=== PATIENT | female | born 1965 | race Two or more races ===

== ENCOUNTER 2020-02-21 15:38 | Emergency (ER) | payer OTHER ==
[~2020-02-21] VITALS: Ht 160 cm; Wt 66.2 kg
[~2020-02-21 15:38] MED LIST: AMLODIPINE BESI25 GM MC
== END 2020-02-21 20:41 | disposition home or self-care (01) ==
LOC: ER 15:38
DX: D25.1 Intramural leiomyoma of uterus (principal); N83.291 Other ovarian cyst, right side; I10 Essential (primary) hypertension